=== PATIENT | male | born 1990 | race Caucasian/White ===

== ENCOUNTER 2017-08-04 21:21 | Emergency (ER) | payer SELFPAY ==
[~2017-08-04] VITALS: Ht 190.5 cm; Wt 81.6 kg
--- NOTE | 2017-08-04 23:47 | NUR ---
PT AMBULATORY TO ER BED 7 WITH CANE. PT C/O LEFT KNEE PAIN S/P FALL DURING BASKETBALL AT 5PM. PT STATES HE TOOK IBUPROFEN 400MG AT 7PM. PT AOX3 RR EVEN AND UNLABORED. NO SOB NOTED. NAD NOTED. NO NVD AT THIS TIME. PT WAITING FOR MD HODGE. GIRLFRIEND AT BEDSIDE
[2017-08-05] MEDS ORDERED: HYDROCODONE/APAP 5/325MG 1 EACH TABLET PO ONE (01:00)
[2017-08-05] MEDS ORDERED: HYDROCODONE/APAP 5/325MG 1 EACH TABLET ONE (01:02)
--- NOTE | 2017-08-05 01:37 | NUR ---
Patient discharged to home in stable condition. Written and verbal after care instructions given. Patient verbalizes understanding of instruction. ambulatory with a steady gait with crutches. instructed not to drive. pt verbalize understanding.
[2017-08-05 01:40] VITALS: BP 128/78
== END 2017-08-05 01:41 | disposition home or self-care (01) ==
LOC: ER 21:21
DX: M23.92 Unspecified internal derangement of left knee (principal); W21.05XA Struck by basketball, initial encounter; Y93.67 Activity, basketball; Y92.89 Other specified places as the place of occurrence of the external cause; Y99.8 Other external cause status
CPT/HCPCS: 29505; 73564; 99284; A4606; Z7610

== ENCOUNTER 2020-05-14 23:48 | Emergency (ER) | payer OTHER ==
[~2020-05-14] VITALS: Ht 189.2 cm; Wt 93.0 kg
--- NOTE | 2020-05-15 | NUR ---
BIBS FOR C/O UPPER LIP LAC, L ELBOW PAIN, L FOREARM ABRASION S/P GLF. PT ALERT AND VERBALLY RESPONSIVE. AMBULATORY TO BED 3. PLACED ON A MONITOR .VSS.
--- NOTE | 2020-05-15 00:29 | NUR ---
dr soto at the bed side
[2020-05-15] MEDS ORDERED: SODIUM BICARBONATE 5 ML VIAL ONE (00:41)
[2020-05-15] MEDS ORDERED: LIDOCAINE 1%-EPI 1:100,000 20 ML VIAL ONE (00:41)
--- NOTE | 2020-05-15 00:44 | NUR ---
PT REFUSED BLOOD WORK. AWARE
--- NOTE | 2020-05-15 00:50 | NUR ---
EMT at bed side for ECG and laceration care
--- NOTE | 2020-05-15 00:59 | NUR ---
dr soto at bed side for lac care
[2020-05-15] MEDS ORDERED: SODIUM BICARBONATE 5 ML VIAL MC ONE (01:00)
[2020-05-15] MEDS ORDERED: CEPHALEXIN MONOHYDRATE 500 MG CAPSULE PO ONE ×2 (01:00→01:05)
[2020-05-15] MEDS ORDERED: LIDOCAINE 1%-EPI 1:100,000 20 ML VIAL TP ONE (01:00)
--- NOTE | 2020-05-15 01:24 | NUR ---
GOOD SKIN CARE ON LFA SKIN TEAR PROVIDED, AREA WAS CLEANED AND DRIED. COVERED WITH DRY DRESSING. PT ID MEDICALLY STABLE FOR D/C. Patient discharged to home in stable condition. Written and verbal after care instructions given. Patient verbalizes understanding of instruction.
[2020-05-15 01:26] VITALS: BP 152/78
== END 2020-05-15 01:27 | disposition home or self-care (01) ==
LOC: ER 23:50
DX: S01.511A Laceration without foreign body of lip, initial encounter (principal); S50.02XA Contusion of left elbow, initial encounter; F10.129 Alcohol abuse with intoxication, unspecified; R55 Syncope and collapse; F17.200 Nicotine dependence, unspecified, uncomplicated; I10 Essential (primary) hypertension; Y90.9 Presence of alcohol in blood, level not specified; W01.198A Fall on same level from slipping, tripping and stumbling with subsequent striking against other object, initial encounter; Y93.89 Activity, other specified; Y92.89 Other specified places as the place of occurrence of the external cause; Y99.8 Other external cause status
CPT/HCPCS: 12011; 73080; 93005; 99283; 99406; A6403; J3490 ×2